=== PATIENT | male | born 1980 | race Native Hawaiian/Other Pacific Islander ===

== ENCOUNTER 2018-02-14 14:38 | Emergency (ER) | payer OTHER ==
[2018-02-14 14:55] VITALS: TEMP 97.7
[2018-02-14] MEDS ORDERED: Sodium Chloride 0.9% 500 ML IV STA (15:26)
[2018-02-14] MEDS ORDERED: DiphenhydrAMINE 50 mg/ml Inj IVP STA (15:27)
--- NOTE | 2018-02-14 15:43 | ED PDOC ---
HPI: Headache Time Seen by Provider: 02/14/18 15:10 Chief Complaint (Nursing): Headache Chief Complaint (Provider): Headache Onset/Duration Of Symptoms: Days (x1, last night) Associated Symptoms: Photophobia. denies: Blurred Vision Additional Complaint(s): Yanet Gonzales is a 37 y/o male with no significant past medical history who presents to the ED complaining of headache, onset last night around 22:00. Patient reports that he took some Tylenol for pain management but was woken up at 03:00 this morning and the headache was acutely worse. He also reports associated nausea, chills, photophobia, dizziness, pain behind eyes, and feeling of tension in temporal area. He was sick with URI symptoms and chest cold last week; symptoms were resolved x4 days ago (Friday) and states his son was also sick with similar symptoms x1 week ago. Patient reports that he has experienced similar symptoms except they were not as severe a year ago when he was diagnosed with vertigo. He denies any fever, vomiting focal weakness or numbness, blurry vision, or neck pain. PMD: None provided (evaluated at Urgent Care center) Past Medical History Reviewed: Historical Data, Nursing Documentation, Vital Signs Vital Signs: Last Vital Signs Temp 97.7 F 02/14/18 14:50 Pulse 85 02/14/18 14:50 Resp 20 02/14/18 14:50 BP 154/90 H 02/14/18 14:50 Pulse Ox 95 02/14/18 14:50 - Medical History PMH: No Chronic Diseases - Surgical History Other surgeries: Eye - Family History Family History: States: Other Other Family History: Liver disease and vertigo - Social History Current smoker - smoking cessation education provided: No Alcohol: None - Home Medications Home Medications: Ambulatory Orders Medication Instructions Recorded Ibuprofen [Motrin Tab] 600 mg PO Q8 PRN #30 tab 02/14/18 Ondansetron ODT [Zofran ODT] 1 odt PO Q6 PRN #20 odt 02/14/18 - Allergies Allergies/Adverse Reactions: Allergies Allergy/AdvReac Type Severity Reaction Status Date / Time No Known Allergies Allergy Verified 02/14/18 14:55 Review of Systems ROS Statement: Except As Marked, All Systems Reviewed And Found Negative (and as per HPI) Constitutional: Positive for: Chills. Negative for: Fever Eyes: Positive for: Pain (behind eyes), Other (photophobia). Negative for: Vision Change (blurry vision) Gastrointestinal: Positive for: Nausea. Negative for: Vomiting Musculoskeletal: Negative for: Neck Pain Neurological: Positive for: Headache, Dizziness, Other (tension in temporal area ). Negative for: Weakness (focal), Numbness (focal) Physical Exam - Reviewed Nursing Documentation Reviewed: Yes Vital Signs Reviewed: Yes - Physical Exam Appears: Positive for: Well, Non-toxic, No Acute Distress Head Exam: Positive for: ATRAUMATIC, NORMOCEPHALIC Skin: Positive for: Warm, Dry Eye Exam: Positive for: EOMI, PERRL. Negative for: Nystagmus ENT: Positive for: Pharynx Is (clear), Other (mucus membranes moist) Neck: Positive for: Painless ROM, Supple Cardiovascular/Chest: Positive for: Regular Rate, Rhythm, Chest Non Tender. Negative for: Murmur Respiratory: Positive for: Normal Breath Sounds. Negative for: Wheezing Gastrointestinal/Abdominal: Positive for: Soft. Negative for: Tenderness Back: Positive for: Normal Inspection. Negative for: Muscle Spasm Extremity: Positive for: Normal ROM. 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 Negative for: Motor/Sensory Deficits - Laboratory Results Result Diagrams: 02/14/18 15:56 02/14/18 15:56 - ECG O2 Sat by Pulse Oximetry: 95 (RA) Pulse Ox Interpretation: Normal Medical Decision Making Medical Decision Making: Time: 15:25 Initial Impression: Headache Differential diagnosis including but not limited to tension headache, electrolyte abnormality, dehydration, intercerebral mass, vertigo, and viral syndrome Meningitis considered due to headache and concern of urgent care center. However , patient has no fever and no neck stiffness making meningitis highly unlikely. Initial Plan: --CT head w/o contrast --CMP --Magnesium --Phosphorous --ED urine dipstick --CBC with differential --Amelia --Benadryl 25 mg IVP --Sodium Chloride 0.9% 500 ml IV 500 mls/hr --Reglan 10 mg IVP --Tylenol 975 mg PO Accession No. : [id number] Patient Name / ID : DANYEL HOLT / [id number] Exam Date : 02/14/2018 16:55:47 ( Approved ) Study Comment : Sex / Age : M / 37Y Creator : Gilmer Darden MD Dictator : Gilmer Darden MD Parcel Post Weigher : Ac/Dc Rewinder : Gilmer Darden MD Approver2 : Report Date : 02/14/2018 17:22:32 My Comment : PROCEDURE: CT HEAD WITHOUT CONTRAST. HISTORY: headache COMPARISON: None available. TECHNIQUE: Axial computed tomography images were obtained through the head/brain without intravenous contrast. Radiation dose: Total exam DLP = 806.5 mGy-cm. This CT exam was performed using one or more of the following dose reduction techniques: Automated exposure control, adjustment of the mA and/or kV according to patient size, and/or use of iterative reconstruction technique. FINDINGS: HEMORRHAGE: No intracranial hemorrhage. BRAIN: No mass effect or edema. No atrophy or chronic microvascular ischemic changes. VENTRICLES: Unremarkable. No hydrocephalus. CALVARIUM: Unremarkable. PARANASAL SINUSES: Unremarkable as visualized. No significant inflammatory changes. MASTOID AIR CELLS: Unremarkable as visualized. No inflammatory changes. OTHER FINDINGS: Postoperative changes in the left globe. IMPRESSION: No acute intracranial pathology. Labs with no clinically significant abnormalities, including normal WBCs. Toradol added for pain control. 645p Pt feels better. Stable for dc. Neuro and outpatient follow up in 2-3 days. Scribe Attestation: Documented by Jaziel Tineo, acting as a scribe for Neha Laughlin MD. Provider Scribe Attestation: All medical record entries made by the Scribe were at my direction and personally dictated by me. I have reviewed the chart and agree that the record accurately reflects my personal performance of the history, physical exam, medical decision making, and the department course for this patient. I have also personally directed, reviewed, and agree with the discharge instructions and disposition. Disposition - Clinical Impression Clinical Impression: Headache Counseled Patient/Family Regarding: Studies Performed, Diagnosis, Need For Followup - Disposition Referrals: [facility] [Outside] - 02/16/18 Jesus Zayas MD [Staff Provider] - 02/16/18 Disposition: Routine/Home Disposition Time: 17:54 Condition: STABLE Additional Instructions: FOLLOW UP WITH NEUROLOGIST AND [facility] FRIDAY FOR REEVALUATION AND FURTHER MANAGEMENT. YANET GONZALES, thank you for letting us take care of you today. Your provider was Neha Laughlin MD and you were treated for POSS MENINGITIS. The emergency medical care you received today was directed at your acute symptoms. If you were prescribed any medication, please fill it and take as directed. It may take several days for your symptoms to resolve. Return to the Emergency Department if your symptoms worsen, do not improve, or if you have any other problems. Please contact your doctor or call one of the physicians/clinics you have been referred to that are listed on the Patient Visit Information form that is included in your discharge packet. Bring any paperwork you were given at discharge with you along with any medications you are taking to your follow up visit. Our treatment cannot replace ongoing medical care by a primary care provider outside of the emergency department. Thank you for allowing the [facility] team to be part of your care today. If you had an X-Ray or CT scan: A Radiologist will review the ED reading if any change in treatment is needed we will contact you. Prescriptions: Ibuprofen [Motrin Tab] 600 mg PO Q8 PRN #30 tab PRN Reason: Headache Ondansetron ODT [Zofran ODT] 1 odt PO Q6 PRN #20 odt PRN Reason: Nausea/Vomiting Instructions: Headache, Adult Forms: [facility] ([place]), [facility] ED School/Work Excuse
[2018-02-14] MEDS ORDERED: DiphenhydrAMINE 50 mg/ml Inj ONE (16:01)
[2018-02-14 16:06] LABS: BASO # 0.1 K/uL (0.0-0.2); BASO % 0.5 % (0.0-2.0); EOS # 0.1 K/uL (0.0-0.7); EOS % 0.7 % (0.0-4.0); HEMOGLOBIN 14.5 g/dL (12.0-18.0); LYMPH # 1.8 K/uL (1.0-4.3); LYMPH % 19.5 % (20.0-40.0); MEAN CORPUSCULAR HEMOGLOBIN 31.1 pg (27.0-31.0); MEAN CORPUSCULAR HGB CONC 33.4 g/dL (33.0-37.0); MEAN PLATELET VOLUME 7.1 fl (7.2-11.7); MONO # 0.7 K/uL (0.0-0.8); MONO % 7.9 % (0.0-10.0); NEUT # 6.6 K/uL (1.8-7.0); NEUT % 71.4 % (50.0-75.0); RBC 4.67 Mil/uL (4.40-5.90); WHITE BLOOD COUNT 9.3 K/uL (4.8-10.8)
[2018-02-14 16:38] LABS: ALB/GLOB RATIO 1.2 (1.0-2.1); ALBUMIN 4.6 g/dL (3.5-5.0); ALT/SGPT 66 U/L (21-72); AST/SGOT 41 U/L (17-59); BLOOD UREA NITROGEN 9 mg/dl (9-20); CALCIUM 9.8 mg/dL (8.4-10.2); GFR AFRICAN-AMERICAN > 60; GFR NON-AFRICAN AMERICAN > 60
--- NOTE | 2018-02-14 17:24 | CT ---
PROCEDURE: CT HEAD WITHOUT CONTRAST. HISTORY: headache COMPARISON: None available. TECHNIQUE: Axial computed tomography images were obtained through the head/brain without intravenous contrast. Radiation dose: Total exam DLP = 806.5 mGy-cm. This CT exam was performed using one or more of the following dose reduction techniques: Automated exposure control, adjustment of the mA and/or kV according to patient size, and/or use of iterative reconstruction technique. FINDINGS: HEMORRHAGE: No intracranial hemorrhage. BRAIN: No mass effect or edema. No atrophy or chronic microvascular ischemic changes. VENTRICLES: Unremarkable. No hydrocephalus. CALVARIUM: Unremarkable. PARANASAL SINUSES: Unremarkable as visualized. No significant inflammatory changes. MASTOID AIR CELLS: Unremarkable as visualized. No inflammatory changes. OTHER FINDINGS: Postoperative changes in the left globe. IMPRESSION: No acute intracranial pathology.
[2018-02-14 18:50] VITALS: BP 135/80; PULSE 75; RESP 16
[2018-02-14 18:51] VITALS: O2SAT 95
== END 2018-02-14 19:10 | disposition home or self-care (01) ==
LOC: H.ER 14:38
DX: R51 Headache (principal)
CPT/HCPCS: 70450; 80053; 83735; 84100; 85025; 86308; 96361; 96374; 96375; 99283; J1200; J1885; J2765; J7030